=== PATIENT | female | born 1995 | race Caucasian/White ===

== ENCOUNTER 2020-07-25 14:57 | Outpatient (REF) | payer MEDICAID, SELFPAY | END 2020-07-25 14:58 | disposition home or self-care (01) | LOC: HO.MANLNP 14:57 | PROVIDERS: PCP Physician Assistant; Visit Provider Physician Assistant | DX: R30.9 Painful micturition, unspecified (principal) | CPT/HCPCS: 87086 ==

== ENCOUNTER 2022-11-10 10:36 | Outpatient (REF) | payer MEDICAID, SELFPAY ==
[2022-11-10 14:04] LABS: MANUAL DIFF FLAG NO
[2022-11-10 14:26] LABS: Basophils Percent Auto 0.4 % (0-2); Eosinophils Absolute Auto 0.8 X10*3/uL (0.0-0.4); Eosinophils Percent Auto 10.9 % (0-4); Hematocrit 41.4 % (37.0-47.0); Imm Gran Abs Auto 0.01 X10*3/uL (0.00-0.03); Imm Gran Pct Auto 0.1 % (0.0-0.4); Lymphocytes Absolute Auto 2.2 X10*3/uL (1.2-4.9); Lymphocytes Percent Auto 31.2 % (20-40); Mean Corpuscular HGB Conc 33.8 g/dl (31.0-35.0); Mean Corpuscular Hemoglobin 30.1 pg (27.0-33.0); Mean Platelet Volume 10.5 fL (9.4-12.3); Monocytes Absolute Auto 0.4 X10*3/uL (0.1-1.2); Monocytes Percent Auto 5.2 % (2-11); Neutrophils Absolute Auto 3.6 x10*3/uL (2.0-8.3); Neutrophils Percent Auto 52.2 % (45-73); Platelet Count 301 X10*3/uL (160-400); Red Blood Count 4.65 X10*6/uL (4.20-5.50); Red Cell Distribution Width 11.7 % (11.0-16.0); White Blood Count 6.9 X10*3/uL (4.8-10.8)
[2022-11-10 14:47] LABS: Alanine Aminotransferase 14 U/L (0-31); Albumin Level 4.3 g/dL (3.5-5.0); Alkaline Phosphatase 57 U/L (39-117); Anion Gap 14 (12-20); Aspartate Amino Transferase 19 U/L (5-31); Bilirubin Total 0.6 mg/dL (0.0-1.0); Blood Urea Nitrogen 10 mg/dL (9-16); Calcium 9.4 mg/dL (8.4-10.2); Carbon Dioxide 23 mmol/L (22-29); Chloride 105 mmol/L (96-108); Cholesterol 213 mg/dL; Estimated Glomerular Filt Rate > 60; Glucose Random 91 mg/dL (60-115); HDL Cholesterol 49 mg/dL; Iron 161 mcg/dL (30-160); LDL Cholesterol Calculated 134 mg/dl; Percent Iron Saturation 48 % (15-50); Potassium 4.5 mmol/L (3.3-5.1); Sodium 137 mmol/L (135-145); Total Iron Binding Capacity 338 mcg/dL (228-428); Total Protein 6.7 g/dL (6.5-8.0); Triglycerides 150 mg/dL; Unsaturated Iron Binding 177 ug/dL
[2022-11-10 15:12] LABS: Ferritin 34 ng/mL (10-122); Free T4 (Free Thyroxine) 0.92 ng/dL (0.71-1.85); Thyroid Stimulating Hormone 1.63 uIU/mL (0.32-4.0); Vitamin D 25-OH Total 20.6 ng/mL (>30)
== END 2022-11-10 10:37 | disposition home or self-care (01) ==
LOC: HO.MANLDS 10:36
PROVIDERS: Visit Provider Physician Assistant
DX: Z00.00 Encounter for general adult medical examination without abnormal findings (principal); Z77.120 Contact with and (suspected) exposure to mold (toxic)
CPT/HCPCS: 36415; 80053; 80061; 82306; 82728; 83540; 84439; 84443; 85025

== ENCOUNTER 2023-03-30 13:40 | Outpatient (REF) | payer MEDICAID, SELFPAY ==
[2023-03-30 17:53] LABS: Appearance Urine Clear; Color Urine Yellow; Glucose Urine UA Negative (Negative); Leukocyte Esterase Urine Negative (Negative); Nitrite Urine Negative (Negative); PH 7.5 (5.0-9.0); Urine Blood Negative (Negative); Urine Ketones Negative (Negative); Urine Protein Negative (Neg-Trace)
== END 2023-03-30 13:41 | disposition home or self-care (01) ==
LOC: HO.MANLNP 13:40
PROVIDERS: Visit Provider Physician Assistant
DX: R30.9 Painful micturition, unspecified (principal)
CPT/HCPCS: 81003

== ENCOUNTER 2024-09-09 11:39 | Outpatient (REF) | payer OTHER, SELFPAY ==
[2024-09-09 13:19] LABS: Appearance Urine Cloudy; Color Urine Yellow; Glucose Urine UA Negative (Negative); Leukocyte Esterase Urine Small (1+) (Negative); Nitrite Urine Positive (Negative); PH 7.5 (5.0-9.0); UMIC TRIGGER UACC YES; Urine Blood Negative (Negative); Urine Ketones Trace mg/dL (Negative); Urine Protein Negative (Neg-Trace)
[2024-09-09 13:24] LABS: Bacteria Urine 4+ (None Seen); Hyaline Casts Urine 0-2 /LPF (0-2); RBC Urine 0-2 /HPF (0-2); Squamous Epithelial Cell Urine 0-2 /HPF (0-2); UACC Culture Trigger YES
== END 2024-09-09 11:40 | disposition home or self-care (01) ==
LOC: HO.LAB 11:39
PROVIDERS: PCP Internal Medicine; Visit Provider Physician Assistant
DX: N39.0 Urinary tract infection, site not specified (principal)
CPT/HCPCS: 81001; 87086; 87088; 87186

== ENCOUNTER 2024-12-16 14:54 | Outpatient (REF) | payer OTHER, SELFPAY ==
--- OUTSIDE RECORDS SUMMARY | 2024-12-16 16:17 | XMS_ITS | Patient Health Record ---
Author Organization [facility] Address [address] [place] [address] Care Team Providers Care Power Plant Inspector Name Role Phone LEAH FERNANDEZ Primary Care Provider NORBERTO Carmichael Unavailable [phone] Reason For Referral No Information Social History Tobacco Use: Social History Observation Description Date Details (start date - stop date) Former Smoker NA - NA Tobacco Use/Smoking Question Answer Notes Are you a former smoker How long has it been since you last smoked? 1-3 months Alcohol Screen (Audit-C) Question Answer Notes Did you have a drink contain ing alcohol in the past year? Yes How often did you have a dri nk containing alcohol in the past year? 2 to 3 times a week (3 points) How many drinks did you have on a typical day when you were drinking in the past year? 1 or 2 drinks (0 point) Points 3 Interpretation Positive Sexual History Question Answer Notes Had sex in the past 12 months (vaginal, oral, or anal)? Yes with Men only Prevention strategies discussed: Condoms Plan Of Treatment Pending Test Test Name Order Date THIN PREP,HPV IF ASCUS, CT/GC (21-29YR) 11/08/2018 Insurance Providers Payer Name Payer Address Payer Phone Subscriber Number Group Number Insured Name Patient Relationship to Insured Coverage Start Date Coverage End Date [facility] [address] [place] [address] [phone] [id number] NATE MONTOYA Self - patient is the insured Medical (General) History Medical History History ICD Code Migraine without aura, intractable, with out status migrainosus G43.019 Anxiety disorder, unspecified F41.9 Major depressive disorder, single episod e, unspecified F32.9 Surgical History Surgery Date(Month/Year) D&C 11/2017 Hospitalization History Reason Date(Month/Year) UTI 10/12/18
--- OUTSIDE RECORDS SUMMARY | 2024-12-16 16:17 | XMS_ITS | Encounter Summary ---
Author Organization [facility] Address [address] [place] [address] Phone Care Team Providers Care Loader Operator Name Role Phone Unavailable Primary Care Provider Unavailabl e Encounter Details Date Type Department Care Team (Late st Contact Info) Description 10/25/2009 Documentation [facility] Family Medicine [facility] [place] [address] Family Medicine, Physician [facility] [place] [address] Social History Tobacco Use Types Packs/Day Years Used Date Smoking Tobacco: Never Assessed Comments Unknown Sex and Gender Information Value Date Recorded Sex Assigned at Not on file Legal Sex Female 6:28 PM EDT Gender Identity Not on file Sexual Orientation Not on file documented as of this encounter Plan of Treatment Not on file documented as of this encounter Visit Diagnoses Not on filedocumented in this encounter
--- OUTSIDE RECORDS SUMMARY | 2024-12-16 16:17 | XMS_ITS | Clinical Summary ---
Author Organization [facility] Address [address] [place] [address] Care Team Providers Care Production Sanitizer Name Role Phone Unavailable Primary Care Provider Unavailabl e Social History Tobacco Use Types Packs/Day Years Used Date Smoking Tobacco: Never Assessed Sex and Gender Information Value Date Recorded Sex Assigned at Not on file Gender Identity Not on file Sexual Orientation Not on file Plan of Treatment Health Maintenance Due Date Last Done Comments Hepatitis C Virus Screening 1993 HIV Screening 2006 DTaP/Tdap/Td Vaccines (1 - Tdap) 2012 Hepatitis B Vaccines (1 of 3 - 19+ 3-dose series) 2012 Pap Smear (Ages 21-65) 2014 Influenza Vaccine 05/05/2024 COVID-19 Vaccine ( - 2023-2 5 season) 2024 HPV Vaccines Aged Out No longer eligi ble based on patient's age to complete this topic Pneumococcal Vaccine: Pediat izabela (0-5 Years) and At-Risk Patients (6 to 49 Years) Aged Out No longer eligible b ased on patient's age to complete this topic
--- OUTSIDE RECORDS SUMMARY | 2024-12-16 16:17 | XMS_ITS | Continuity of Care Document ---
Author Organization [facility] Address [address] [place] [address] Assessment No assessment recorded. Plan of Treatment Reminders Order Date Submit Date Provider Last Modified By Organization Details Last Modified Time Details Appointments FOLLOW UP 15 2024 11:15A M JAMARI BABCOCK Not available Not available Not available ANNUAL EXAM 2024 09:30A M JAMARI BABCOCK Not available Not available Not available Lab None recorded . Referral None recorded . Procedures None recorded . Surgeries None recorded . Imaging None recorded . Medication Orders None recorded . Patient TargetsNo targets recorded. Patient InstructionsNo instructions recorded. 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 None Reported. Results Created Date Observation Date Name Description Value Unit Range Abnormal Flag Note LastModifiedBy Organization Detail LastModifiedTime 11/22/1911/22/2024 MRI, knee, w/o contr ast No observ ation record ed. [email or web address] Not Available 2024 10:46:00 Result Notes None recorded. Problems Name Problem SNOMED Code Status Onset Date Resolution Date Notes Provider Name and Address Organization Details Recorded Time History of depressi on 490702355 Active 2017 Not Available [facility] 3 12:53:26 Anxiety 75219638 Active 2017 Not Available [facility] 3 12:53:26 Acne 64165902 Active 2017 Not Available [facility] 3 12:53:26 Migraine 89401751 Active 2017 resolved Not Available [facility] 3 12:53:26 Tobacco dependen ce syndrome 71326414 Active 2017 Not Available [facility] 3 12:53:26 Cough 27762728 Active 2021 Not Available [facility] 3 12:53:26 Diarrhea 10128682 Active 2021 Not Available [facility] 3 12:53:26 Panic attack 448715534 Active 2021 Not Available [facility] 3 12:53:26 Migraine with aura 9487189 Active 2022 Not Available [facility] 3 12:53:26 Cellulit is 436814134 Active 2022 Not Available [facility] 3 12:53:26 Acute urinary tract infectio n 879695029 Active 2022 Not Available [facility] 3 12:53:26 Dysuria 03312413 Active 2022 Not Available [facility] 3 12:53:26 Recurren t urinary tract infectio n 862213440 Active 2022 JAMARI BABCOCK [address] [place], [address], [facility] 3 15:05:38 Acute bacteria l sinusiti s 01698923 Active 2023 JAMARI BABCOCK [address] [place], [address], [facility] 4 14:04:52 Allergic rhinitis 23448186 Active 2023 JAMARI BABCOCK [address] [place], [address], [facility] 4 14:06:00 Asthmati c bronchit is 058893134 Active 2023 Rico Coello DO [address] [place], [address], [facility] 4 13:32:02 Painless rectal bleeding 288141465 Active 2023 JAMARI BABCOCK [address] [place], [address], [facility] 4 16:30:05 Gastroes ophageal reflux disease 800846771 Active 2023 JAMARI BABCOCK [address] [place], [address], [facility] 4 16:31:26 Depressi ve disorder 85697180 Active 2023 JAMARI BABCOCK [address] [place], [address], [facility] 4 16:40:07 Attentio n deficit hyperact ivity disorder 884198826 Active 2023 JAMARI BABCOCK [address] [place], [address], [facility] 4 15:55:43 Pain of left knee joint 37690210576 4107 Active 2023 JAMARI BABCOCK [address] [place], [address], [facility] 4 15:59:05 Severe recurren t major depressi on without psychoti c features 30164340 Active 2024 JAMARI BABCOCK [address] [place], [address], [facility] 5 15:07:37 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 Medical Equipment None Reported. Allergies No known drug allergies Medications Name Sig Start Date Stop Date Status Note LastModified by Organization Details LastModified Time venlafaxi ne ER 37.5 mg capsule,e xtended release 24 hr TAKE 1 CAPSULE BY MOUTH EVERY DAY 08/16 completed Not Available Not Available Not Available ciproflox acin 750 mg tablet TAKE 1 TABLET BY MOUTH EVERY 12 HOURS FOR 7 DAYS 04/18 completed Not Available Not Available Not Available trazodone 50 mg tablet TAKE 1 TO 2 TABLETS BY MOUTH AT BEDTIME 11/10 completed Not Available Not Available Not Available azithromy elinor 250 mg tablet TAKE 2 TABLETS BY MOUTH TODAY, THEN TAKE 1 TABLET DAILY FOR 4 DAYS DIRECTED 04/18 completed Not Available Not Available Not Available fluconazo le 150 mg tablet TAKE 1 TABLET BY MOUTH FOR 3 DAYS. 11/10 completed Not Available Not Available Not Available cephalexi n 250 mg capsule TAKE 1 CAPSULE EVERY 6 HOURS BY ORAL ROUTE FOR 30 DAYS. 04/18 completed Not Available Not Available Not Available prazosin 1 mg capsule 11/10 completed Not Available Not Available Not Available metronida zole 0.75 % (37.5 mg/5 gram) vaginal gel 05/27 completed Not Available Not Available Not Available Tubersol 5 tub. unit/0.1 mL intraderm al injection solution Inject 0.1 mL by intrader mal route. 03/09 completed Not Available Not Available Not Available sertralin e 100 mg tablet TAKE 1 TABLET BY MOUTH EVERY DAY IN THE MORNING 04/18 completed Not Available Not Available Not Available metronida zole 500 mg tablet TAKE 1 TABLET BY MOUTH EVERY 8 HOURS FOR 5 DAYS 11/10 completed Not Available Not Available Not Available ciproflox acin 500 mg tablet TAKE 1 TABLET BY MOUTH EVERY 12 HOURS FOR 10 DAYS active Not Available Not Available No t Available sulfameth oxazole 800 mg-trimet hoprim 160 mg tablet TAKE 1 TABLET BY MOUTH EVERY 12 HOURS FOR 5 DAYS 04/18 completed Not Available Not Available Not Available triamcino lone acetonide 0.1 % topical cream APPLY THIN COAT TO AFFECTED AREA TWICE A DAY 04/18 completed Not Available Not Available Not Available lamotrigi ne 25 mg tablet TAKE ONE TAB IN MORNING X14 DAYS THEN IF TOLERATE D TAKE TWO TABS IN MORNING X14 DAYS 11/10 completed Not Available Not Available Not Available propranol ol 10 mg tablet TAKE 1 TABLET BY MOUTH DAILY AT SUPPER,X 30 DAYS,INS TR:FOR HEADACHE S . 04/18 completed Not Available Not Available Not Available amoxicill in 875 mg tablet TAKE 1 TABLET BY MOUTH EVERY 12 HOURS FOR 7 DAYS 04/18 completed Not Available Not Available Not Available lorazepam 0.5 mg tablet TAKE 1 TABLET BY MOUTH EVERY DAY NEEDED FOR 5 DAYS 11/10 completed Not Available Not Available Not Available bupropion HCl 75 mg tablet TAKE 1 TABLET BY MOUTH EVERY MORNING 11/10 completed Not Available Not Available Not Available fluoxetin e 10 mg capsule TAKE 1 CAPSULE BY MOUTH EVERY DAY 2024 active Not Available Not Available Not Avai lable sertralin e 25 mg tablet Take 1 tablet every day by oral route for 30 days. 05/09 completed Not Available Not Available Not Available methylpre dnisolone 4 mg tablets in a dose pack TAKE 6 TABLETS ON DAY 1 DIRECTED ON PACKAGE AND DECREASE BY 1 TAB EACH DAY FOR A TOTAL OF 6 DAYS 04/18 completed Not Available Not Available Not Available albuterol sulfate HFA 90 mcg/actua tion aerosol inhaler INHALE 2 PUFFS INTO THE LUNGS EVERY 4 HOURS FOR 30 DAYS active Not Available Not Available No t Available sertralin e 50 mg tablet TAKE 1 TABLET EVERY DAY 11/10 completed Not Available Not Available Not Available doxycycli ne hyclate 100 mg tablet TAKE 1 TABLET BY MOUTH TWICE A DAY FOR 7 DAYS 04/18 completed Not Available Not Available Not Available lamotrigi ne 100 mg tablet TAKE 1 TABLET BY MOUTH EVERY MORNING AFTER 50 MG DOSING IS COMPLETE 11/10 completed Not Available Not Available Not Available rizatript an 5 mg tablet PLEASE SEE ATTACHED FOR DETAILED DIRECTIO NS 04/18 completed Not Available Not Available Not Available atomoxeti ne 40 mg capsule TAKE 1 CAPSULE BY MOUTH EVERY DAY 2024 active Not Available Not Available Not Avai lable bupropion HCl XL 150 mg 24 hr tablet, extended release TAKE 1 TABLET BY MOUTH EVERY MORNING 11/10 completed making general anxiety worse Not Available Not Available Not Available Boostrix Tdap 2.5 Lf unit-8 mcg-5 Lf/0.5 mL intramusc ular syringe TO BE ADMINIST ERED BY PHARMACI ST FOR IMMUNIZA TION 11/10 completed Not Available Not Available Not Available COVID-19 At-Home Test kit USE DIRECTED 04/18 completed Not Available Not Available Not Available Vitals Date Recorded Body height Body mass index (BMI) Body weight Heart rate Oxygen saturation Oxygen saturation in Arterial blood by Pulse oximetry Systolic blood pressure Diastolic blood pressure Provider Name and Address Organization Details Last Updated DateTime 5 161.29 cm 33.7 kg/m2 43068.3 3 g 83 /min 97 % 97 % 110 mm[Hg] 68 mm[Hg] Nereida Argueta [facility] 5 14:43:05 Social History Question Answer Notes LastModified by Organizat ion Details LastModified Time Tobacco Smoking Status Former Smoker Nereida orlando [facility] 12/12/2024 14:41:42 What Was The Date Of Your Most Recent Tobacco Screening? 12/12/2024 [email or web address] Information not available 12/12/2024 How Much Tobacco Do You Smoke? No [email or web address] Information not available 12/12/2024 Do You Or Have You Ever Used Any Other Forms Of Tobacco Or Nicotine? No [email or web address] Information not available 03/30/2023 Sex: Unknown Functional Status None recorded. Mental Status None recorded. Family History Nothing Reported. Medical History No medical history recorded. Gynecological HistoryNo gynecological history recorded. Obstetrics History GPAL:G 0 P 0 0 0 0 Immunizations Vaccine Type Date Status Note Provider Nam e and Address Organization Details Recorded Time Influenza, split virus, quadrivalent, preservative 9 completed Not Available [facility] 10/22/2019 02:46:30 influenza, unspecified formulation 2 completed Clare orlando [facility] 11/10/2022 08:15:47 Tdap 0 completed Brittani Nieves [facility] 03/30/2020 08:15:40 Past Encounters Encounter ID Performer Location Encounter Start Date Encounter Closed Date Diagnosis/Indication Diagnosis SNOMED-CT Code Diagnosis ICD10 Code Diagnosis Note [id number] JAMARI BABCOCK [facility] [address] [address] 12/12/2024 14:32:46 12/12/2024 15:42:27 Severe recurrent major depression without psychotic features 51004199 F33.2 will set up with [facility] Health Concerns Section Related Observation LastModified by Organization Detai ls LastModified Time None Recorded Concern Status LastModified by Organization Details LastModified Time None Recorded Payers Encounter Date Sequence Insurance Name Policy Number Policy Islas Covered Member ID Islas Member ID Guarantor Name 12/12/2024 1 [employer] [id number] Mandie Hassan [id number] Mandie Hassan Notes Date Note Type Note Provider Name a nd Address Organization Details Recorded Time 12/12/2024 text/html f/u depression depression d/o: the patient is having a lot of issues with previous anti depressant, noted that she got more irritability will hold on alt medication until we get her set up with FMLA for severe MDD and SI having severe emotional distress due to her job and her fam she works for [employer], contact for [facility], medical leave: Desire Boyce 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
--- OUTSIDE RECORDS SUMMARY | 2024-12-16 16:17 | XMS_ITS | Encounter Summary ---
Author Organization [facility] Address [address] [place] [address] Phone Care Team Providers Care Staff Respiratory Therapist Name Role Phone Unavailable Primary Care Provider Unavailabl e Encounter Details Date Type Department Care Team ([facility] st Contact Info) Description 02/21/2018 Conversion [facility]counter [facility] [address] [address] Social History Tobacco Use Types Packs/Day Years [...]
--- OUTSIDE RECORDS SUMMARY | 2024-12-16 16:17 | XMS_ITS | Data Portability ---
Author Organization [facility] Home Service Address [address] [place] [address] Assessment Encounter Date Assessment Date Assessment LastModified by Organization Details LastModified Time 02/23/2024 02/23/2024 Patient agreed and verbally consents to this audio and video Telehealth appt via a secure platform [email or web address] Not available 02/23/2024 14:09:09 Plan of Treatment Reminders Order Date Submit Date Provider Last Modified By Organization Details Last Modified Time Details Appointments FOLLOW UP 15 2024 11:15A M JAMARI BABCOCK Not available Not available Not available ANNUAL EXAM 2024 09:30A M JAMARI BABCOCK Not available Not available Not available Lab CMP, serum or plasma 2023 DARIN [facility] (Centralized Electronic Ordering - All Locations), Patient Can Go To The Location Of Their Choice, [id number] 08/19/2024 10:34:11 CBC w/ auto diff 2023 024 ATHENAFAX [facility] (Centralized Electronic Ordering - All Locations), Patient Can Go To The Location Of Their Choice, [id number] 08/16/2024 16:09:07 vitamin D, 25-hydrox y, total, serum 2023 024 ATHENAFAX [facility] (Centralized Electronic Ordering - All Locations), Patient Can Go To The Location Of Their Choice, [id number] 08/16/2024 16:09:08 lipid panel, blood 2023 024 ATHENAFAX [facility] (Centralized Electronic Ordering - All Locations), Patient Can Go To The Location Of Their Choice, [id number] 08/16/2024 16:09:07 TSH + free T4, serum 2023 ATHMotomotivesTyba [facility] (Centralized Electronic Ordering - All Locations), Patient Can Go To The Location Of Their Choice, [id number] 08/16/2024 16:09:08 CBC w/ auto diff 2023 [facility], [address] [place] [address], [address], 04/18/2024 16:40:52 CMP, serum or plasma 2023 024 [facility], [address] [place] [address], [address], 04/18/2024 16:40:52 iron + TIBC + ferritin, serum 2023 024 [facility], [address] [place] [address], [address], 04/18/2024 16:40:52 amylase + lipase, serum 2023 024 [facility], [address] [place] [address], [address], 04/18/2024 16:40:52 gamma-glu tamyl transfera se (ggt), serum 2023 [facility], [address] [place] [address], [address], 04/18/2024 16:40:52 Referral gastroent erologist referral 2023 024 benjamin Altman MD, [address] [facility] [address], [place], [address], 04/19/2024 15:52:06 electrical project engineer referral 2023 024 benjamin Mcgill MD, [address], [place], [address], 02/24/2024 09:13:49 Procedures None recorded. Surgeries None recorded. Imaging XR, knee, 3 view 2023 024 [facility], [address] [place], [address], 08/18/2024 17:24:54 Medication Orders fluoxetin e 10 mg capsule 2023 024 [id number], [address] [place], [address], 09/09/2024 15:53:03 atomoxeti ne 40 mg capsule 2023 024 [id number], [address] [place], [address], 09/09/2024 15:52:47 venlafaxi ne ER 37.5 mg capsule,e xtended release 24 hr 2023 024 [email or web address] [facility], [address] [place], [address], 08/16/2024 15:54:00 Zithromax Z-Hesham 250 mg tablet 2023 024 [facility], [address] [place], [address], 04/18/2024 16:19:55 Medrol (Hesham) 4 mg tablets in a dose pack 2023 024 [facility], [address] [place], [address], 04/18/2024 16:20:16 Patient TargetsNo targets recorded. Patient InstructionsNo instructions recorded. 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 [email or web address] Not Available 2023 13:18:03 11/22/19 25 11/22/2024 MRI, knee, w/o contr ast No observ ation record ed. [email or web address] Not Available 2024 10:46:00 Result Notes None recorded. Problems Name Problem SNOMED Code Status Onset Date Resolution Date Notes Provider Name and Address Organization Details Recorded Time History of depressi on 504431881 Active 2017 Not Available [facility] 3 12:53:26 Anxiety 08380329 Active 2017 Not Available [facility] 3 12:53:26 Acne 67508745 Active 2017 Not Available [facility] 3 12:53:26 Migraine 59987694 Active 2017 resolved Not Available [facility] 3 12:53:26 Tobacco dependen ce syndrome 82217404 Active 2017 Not Available [facility] 3 12:53:26 Cough 60158593 Active 2021 Not Available [facility] 3 12:53:26 Diarrhea 40512591 Active 2021 Not Available [facility] 3 12:53:26 Panic attack 135330808 Active 2021 Not Available [facility] 3 12:53:26 Migraine with aura 0823046 Active 2022 Not Available [facility] 3 12:53:26 Cellulit is 312982100 Active 2022 Not Available [facility] 3 12:53:26 Acute urinary tract infectio n 577142762 Active 2022 Not Available [facility] 3 12:53:26 Dysuria 47936211 Active 2022 Not Available [facility] 3 12:53:26 Recurren t urinary tract infectio n 262102048 Active 2022 JAMARI BABCOCK [address] [place], [address], [facility] 3 15:05:38 Acute bacteria l sinusiti s 96489761 Active 2023 JAMARI BABCOCK [address] [place], [address], [facility] 4 14:04:52 Allergic rhinitis 97710988 Active 2023 JAMARI BABCOCK [address] [place], [address], [facility] 4 14:06:00 Asthmati c bronchit is 277567622 Active 2023 Rico Coello DO [address] [place], [address], [facility] 4 13:32:02 Painless rectal bleeding 955290310 Active 2023 JAMARI BABCOCK [address] [place], [address], [facility] 4 16:30:05 Gastroes ophageal reflux disease 716064749 Active 2023 JAMARI BABCOCK [address] [place], [address], [facility] 4 16:31:26 Depressi ve disorder 06331966 Active 2023 JAMARI BABCOCK [address] [place], [address], [facility] 4 16:40:07 Attentio n deficit hyperact ivity disorder 656032352 Active 2023 JAMARI BABCOCK [address] [place], [address], [facility] 4 15:55:43 Pain of left knee joint 88686272148 4107 Active 2023 JAMARI BABCOCK [address] [place], [address], [facility] 4 15:59:05 Severe recurren t major depressi on without psychoti c features 56403473 Active 2024 JAMARI BABCOCK [address] [place], [address], [facility] 5 15:07:37 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 Procedures Surgical History None recorded. Imaging Results Imaging Date Name Status LastModified by Organiz ation Details LastModified Time 08/18/2024 XR, knee, 3 view completed [email or web address] Information not available 08/19/2024 13:18:03 11/22/2024 MRI, knee, w/o contrast completed [email or web address] Information not available 11/23/2024 10:46:00 Procedure Notes None recorded. Medical Equipment None Reported. [...] and Address Organization Details Last Updated DateTime 4 161.29 cm 33 kg/m2 85562.9 6 g 66 /min 99 % 99 % 130 mm[Hg] 80 mm[Hg] [facility] 4 16:22:10 Date Recorded Body height Body mass index (BMI) Body weight Heart rate Oxygen saturation Oxygen saturation in Arterial blood by Pulse oximetry Systolic blood pressure Diastolic blood pressure Provider Name and Address Organization Details Last Updated DateTime 4 161.29 cm 33.7 kg/m2 79501.7 6 g 84 /min 97 % 97 % 116 mm[Hg] 74 mm[Hg] Chelsea Rodríguez [facility] 4 15:32:07 Date Recorded Body height Body mass index (BMI) Body weight Heart rate Oxygen saturation Oxygen saturation in Arterial blood by Pulse oximetry Systolic blood pressure Diastolic blood pressure Provider Name and Address Organization Details Last Updated DateTime 5 161.29 cm 33.7 kg/m2 34874.3 3 g 83 /min 97 % 97 % 110 mm[Hg] 68 mm[Hg] Nereida Argueta [facility] 5 14:43:05 Social History Question Answer Notes LastModified by Organizat ion Details LastModified Time Tobacco Smoking Status Former Smoker Nereida orlando [facility] 12/12/2024 14:41:42 What Was The Date Of Your Most Recent Tobacco Screening? 12/12/2024 [email or web address] Information not available 12/12/2024 How Much Tobacco Do You Smoke? No Information not available 12/12/2024 Do You Or Have You Ever Used Any Other Forms Of Tobacco Or Nicotine? No [email or web address] Information not available 03/30/2023 Sex: Unknown Functional Status None recorded. Mental Status None recorded. Family History Nothing Reported. Medical History No medical history recorded. Gynecological HistoryNo gynecological history recorded. Obstetrics History GPAL:G 0 P 0 0 0 0 Immunizations Vaccine Type Date Status Note Provider Nam e and Address Organization Details Recorded Time Influenza, split virus, quadrivalent, preservative 9 completed Not Available [facility] 10/22/2019 02:46:30 influenza, unspecified formulation 2 completed Clare orlando [facility] 11/10/2022 08:15:47 Tdap 0 completed Brittani orlando [facility] 03/30/2020 08:15:40 Past Encounters Encounter ID Performer Location Encounter Start Date Encounter Closed Date Diagnosis/Indication Diagnosis SNOMED-CT Code Diagnosis ICD10 Code Diagnosis Note [id number] January CECILIA Bonner [facility] [address] [facility],[place] [address] 05/27/2019 10:04:24 05/27/2019 10:52:43 Hemoptysis 07912201 R04.2 cough, tanya ? tb, pna, vs pe go to er if worsens Dizziness 302027604 R42 Migraine 27686021 G43.90 9 Fatigue 63435469 R53.83 Acute pharyngitis 724630 003 J02.9 Increased frequency of urination 375490529 R35.0 Diarrhea 00598512 R19.7 not as bad anymore was supposed to have celiac panel done but never did [id number] Rico Coello [facility] [address] [facility] [address] [place], [employer] [place] [address] 07/25/2019 09:50:32 07/26/2019 13:36:25 Tuberculosis screening 683940002 Z11.[id number] [facility] [address] [facility] [address], [place] [address] 07/27/2019 09:54:08 07/27/2019 14:22:43 Tuberculosis screening 037507315 Z11.1 Administra tion of influenza vaccine 79040825 Z23 [id number] [facility] [address] [facility] [address] [place], [place] [address] 09/09/2019 10:17:48 09/09/2019 11:04:58 Adult health examination 044937250 Z00.00 Active or passive immunization 328750936 Z23 Fatigue 93680598 R53.83 Vitamin D deficiency 347 23184 E55.9 Body mass index 25-29 - overweight 311204224 Z68.28 [id number] Rico Coello [facility] [address] [facility] [address] [place], [employer] [facility] [place] [address] 09/12/2019 09:59:27 09/12/2019 10:06:57 Tuberculosis screening 709620990 Z11.7 [id number] Rico Coello [facility] [address] [facility] [address] [place], ite D [facility] [place] [address] 09/14/2019 10:05:30 09/14/2019 10:41:21 Tuberculosis screening 395401609 Z11.7 [id number] Rico Coello DO [facility] Medicine [address] [facility] [address],[place] [address] 02/20/2020 15:45:28 02/21/2020 08:17:47 Headache 06682417 R51 Sinus headache 7230977 R 51 Diarrhea 18791539 R19.7 [id number] JAMARI BABCOCK [facility] [address] [facility] [address] [place] [address] [place] [facility] [address] 03/09/2020 08:12:28 03/09/2020 11:41:04 Anxiety 95295411 F41.9 will start on medication and f/u in one month to see how she is doing on the dose on this medication she is advised she can start with half a pill for the first week cut the initial effects as she is sensitive to medication s [id number] JAMARI BABCOCK [facility] [address] [facility],[place] [address] 03/30/2020 08:13:01 03/30/2020 14:17:58 Vitamin B12 deficiency (non anemic) 64158398 E53.8 will recheck level Vitamin D deficiency 347 70996 E55.9 will recheck level Anxiety 83714948 F41.9 doing well on medication will continue and f/u to see if she would like to increase dosage [id number] JAMARI BABCOCK [facility] [address] [facility], [place] [address] 07/18/2020 14:23:31 07/18/2020 15:17:44 Dysuria 96822217 R30.9 will start empiric treatment for possible UTI given symptoms as she is waiting to be tested for COVID Exposure t o SARS-CoV-2 316211275 Z20.828 exposure to positive COVID case indirectly through boss will test for COVID [id number] JAMARI BABCOCK [facility] [address] [facility] [address] [place] [address] 10/09/2020 08:32:10 10/09/2020 12:40:29 COVID-19 011697878 U07.1 patient has completed the two week quarantine and still has symptoms discussed with patient that these may take a while longer to resolve due to the nature of the virus will trial an inhaler to help with breathing and wheezing the patient reports Cough 99816659 R05 will contact me if any worsening symptoms will trial inhaler to see if cough and wheezing improves [id number] JAMARI BABCOCK [facility] [address] [facility], it[address] [place] [address] 07/29/2021 09:06:05 07/29/2021 09:42:34 Active or passive immunization 488257049 Z23 Adult heal th examination 668192463 Z00.00 BP is excellent today Gastroesop hageal reflux disease 272678703 K21.9 will submit referral Migraine with aura 38551 06 G43.109 will submit referral [id number] JAMARI BABCOCK [facility] [address] [facility], [place] [address] 11/19/2021 10:19:00 11/19/2021 14:38:58 Bacterial vaginosis 935386047 N76.0 will start dual therapy for treatment and fu with urine sampleBV usually diagnosed with a smear, if needed will 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 as well [id number] JAMARI BABCOCK [facility] [address] [facility], ite [place] [address] 11/10/2022 10:00:03 11/10/2022 10:51:44 Anxiety 51982052 F41.1 will manage on this Adult heal th examination 467410143 Z00.00 BP is excellent today Exposure to mold 5607490 328 7768606 Z77.120 will set up with mold panel to make sure with new apartment [id number] JAMARI BABCOCK [facility] [address] [facility] [address] [place], [place] [address] 12/19/2022 09:33:14 12/22/2022 10:32:05 Migraine with aura 7150386 G43.109 will submit referral Cellulitis 790206548 L03 .315 will start on doxycyline for the next 7 days [place] [id number] JAMARI BABCOCK [facility] [address] [facility] [address] [place] [address] 03/30/2023 11:29:08 03/30/2023 14:14:52 Acute urinary tract infection 033854948 N10 start on cipro [id number] Rico Coello [facility] [address] [facility],[place] [address] 05/27/2023 14:05:13 05/27/2023 14:58:32 Dysuria 91798902 R30.0 [id number] Rico Coello [facility] [address] [facility] [address] [place] [address] 09/02/2023 13:48:49 09/04/2023 08:46:37 Dysuria 77950824 R30.0 [id number] JAMARI BABCOCK [facility] [address] [place] [address],[place] [address] 02/23/2024 10:37:42 02/24/2024 20:23:11 [id number] JAMARI BABCOCK [facility] [address] [facility],[place] [address] 02/23/2024 12:03:04 02/24/2024 08:44:40 Acute bacterial sinusitis 01327295 J01.01 will start on z hesham, medrol Allergic rhinitis 387939 04 J30.89 will set up with an evaluation [id number] JAMARI BABCOCK [facility] [address] [facility],[place] [address] 04/18/2024 16:11:34 04/19/2024 15:43:14 Depression screening 114551315 Z13.31 negative Painless r ectal bleeding 238563235 K62.5 will set up with lab work to r/o other causes and or continous bleed Gastroesop hageal reflux disease 135780843 K21.9 will submit referral Depressive disorder 7819 7108 F33.8 will switch over to the venlafaxin e [id number] JAMARI BABCOCK [facility] [address] [facility] [address] [place] [address] 08/16/2024 15:20:13 08/16/2024 16:21:38 Active or passive immunization 070572143 Z23 advised patient Adult heal th examination 260663923 Z00.00 BP is excellent today Depressive disorder 3548 9007 F33.8 switch to fluoxetine Attention deficit hyperactivity disorder 747442138 F90.2 will set up with atomoxetin e as wellif effective or if needs some benefit with stronger medication Pain of le ft knee joint 1359317229 81489 M25.562 will set up with left knee XR after previous injury [id number] JAMARI BABCOCK [facility] [address] [facility] [address] [place] [address] 12/12/2024 14:32:46 12/12/2024 15:42:27 Severe recurrent major depression without psychotic features 10738124 F33.2 will set up with FMLA Health Concerns Section Related Observation LastModified by Organization Detai ls LastModified Time None Recorded Concern Status LastModified by Organization Details LastModified Time None Recorded Advance Directives Directive None Recorded Payers Encounter Date Sequence Insurance Name Policy Number Policy Islas Covered Member ID Islas Member ID Guarantor Name 02/23/2024 1 [employer] [id number] Mandie M Hassan [id number] Mandie Hassan 02/23/2024 1 [employer] [id number] Mandie M Hassan [id number] Mandie Hassan 04/18/2024 1 [employer] [id number] Mandie M Hassan [id number] Mandie Hassan 08/16/2024 1 [employer] [id number] Mandie M Hassan [id number] Mandie Hassan 12/12/2024 1 [employer] [id number] Mandie M Hassan [id number] Mandie Hassan Notes Date Note Type Note Provider Name a id Address Organization Details Recorded Time 4 text/html c/o sick symptoms/cold The patient is participating in this appointment via telemedicine communication with a phone call/video calling service (Doxy)The patient consents to use of these platforms in place of an in-person appointment due to either sick symptoms the patient is presenting with or current office closure due to COVID exposure in order to keep our office staff and patients safe The patient presents to the office today with concerns of sick symptoms including cough, sinus pressure, fatigue, feeling generally unwell, fever, diarrhea does have allergies, but has been consistent with her anti-histamine but this has progressed into severe symptoms dark mucus, rhinorrhea, post-nasal drip, dry cough, chest tightness The symptoms started originally about a week and a half agoThe patient reports exposure to n/aThe patient symptoms mainly involves the sinus symptoms will set up with ENT for re eval, had allergy testing there and discussed allergy shotswill fu with them Pertinent comorbidities include n/a The patient symptoms are alleviated by rest, mucinexThe patient symptoms are exacerbated by activity The patient has tested for COVID-19 and the results was negative JAMARI BABCOCK [address] [place], [address], [facility] 02/23/2024 14:11:19 4 text/html c/o rectal bleeding the patient reports that she has had two episodes of blood in her stoolthe patient reports that she has noticed itching around the rectal areathe patient denies pain in the abdomenthe patient denies any changes in bowel habits, was constipated last weekthe patient denies any urinary symptomsthe patient reports to eating more fibrous foods like fruits and vegetablethat is most likely related to constipation then diarrhea causing inflammation and bleeding discussed her medication, the sertraline is causing drowsiness and weight gainwill switch out to venlafaxine JAMARI BABCOCK [address] [place], [address], [facility] 04/18/2024 16:46:14 4 text/html Annual WellnessReported bypatient.Diet and Nutrition:healthy diet; discussed vitamin and supplement use; discussed portion control; discussed maintaining calcium balance; discussed diet improvement Fracture Risk:no history of fractures; no recent explained fracture; no sudden unexplained fractures; no previous musculoskeletal injuries Physical Activity:exercises on a regular basis; recent increase in physical activity; good physical condition Additional Lifestyle Factors:no tobacco use; no alcohol intake; stopped drinking alcohol Depression Risk:never feels sad, empty, or tearful; no loss of interest in activities; no significant changes in weight; no sleep disturbances or insomnia; no agitation; no loss of energy; no feelings of worthlessness or guilt; no thoughts of suicide; no history of depression; no history of mood disorders Hearing:no loss of hearing Vision:no vision problems changing medication will set up fluoxetine and atomoxetine needs XR of knee L given previous injury(about a year ago) needs yearly lab work as well JAMARI BABCOCK [address] [place], [address], [facility] 08/16/2024 16:15:58 5 text/html f/u depression depression d/o: the patient is having a lot of issues with previous anti depressant, noted that she got more irritability will hold on alt medication until we get her set up with FMLA for severe MDD and SI having severe emotional distress due to her job and her fam she works for [employer], contact for [facility], medical leave: 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 Ganesh Jonas film maker [place] Customer Support Call: [phone] Email: [email or web address] JAMARI BABCOCK [address] [place], [address], [facility] 12/12/2024 15:32:39 OBGyn Episode No OBEpisode recorded.
--- OUTSIDE RECORDS SUMMARY | 2024-12-16 16:17 | XMS_ITS | Encounter Summary ---
Author Organization Formerly [facility] Address [address] [place] [address] Care Team Providers Care Assistant Restaurant General Manager Name Role Phone Unavailable Primary Care Provider Unavailabl e Encounter Details Date Type Department Care Team (Latest Contact Info) Description 01/03/2021 Lab Requisition [facility] COVID [address] Through [address] [place] [address] [address] [place] [address] Artemio Allen MD [address] [place], [place] [id number] Encounter for laboratory testing for COVID-19 virus Social History Tobacco Use Types Packs/Day Years Used Date Smoking Tobacco: Never Assessed Sex and Gender Information Value Date Recorded Sex Assigned at Not on file Gender Identity Not on file Sexual Orientation Not on file documented as of this encounter Plan of Treatment Not on file documented as of this encounter Procedures Procedure Name Priority Date/Time Associated Diagnosis Comments COVID-19 (SARS-COV-2) JACOB Routine 01/03/2021 1:54 PM EDT Encounter for laboratory testing for COVID-19 virus [ICD-10-CM] documented in this encounter Results * COVID-19 (SARS-CoV-2), JACOB (In-House) (01/03/2021 1:54 PM EDT) SARS CoV 2 Not Detected Not Detected 01/03/2021 8:06 PM EDT [facility] Comment: Negative results do not preclude SARS-CoV-2 (COVID-19)infection and should not be used as the sole basis for treatment or other patient management decisions. The SARS-CoV-2 (Covid-19) Nucleic Acid Amplification Assay is limited to laboratories certified under the Clinical Laboratory Improvement Amendments of 1988 (CLIA), 42 U.S.C. 263a, to perform high complexity tests. Nucleic acid amplication tests include RT-PCR and TMA. This assay has not been FDA cleared or approved, however, this assay has been authorized by the Food and Drug Administration (FDA) under an Emergency Use Authorization (EUA). ??Validation was completed and performance characteristics established by [facility] as per the FDA and CLIA requirement for this EUA. The Aptima SARS-CoV-2 assay Letter of Authorization, along with the authorized Fact Sheet for Healthcare Providers, the authorized Fact Sheet for Patients, and authorized labeling are available on the FDA website: https://www.fda.gov/medical-devices/twihbrlqy-hdivqdxqot-xclbsfu-devices/emergen -us t-sztyyjfyrmnrge-sqngovo-devices. Performed at [facility], [place], [place] License [id number] ??CLIA [id number] Source Nasopharyngeal 01/03/2021 8:06 PM EDT [facility] Comment:Performed at [facility], [place], [place] license No. [id number] CLIA No. [id number] Microbiology Nasopharyngeal swab / Unknown 01/03/2021 1:54 PM EDT 01/03/2021 1:54 PM EDT Artemio Allen MD MICROBIOLOGY - GENER AL ORDERABLES [facility] [address] [place] [address] documented in this encounter Visit Diagnoses Diagnosis Encounter for laboratory testing for COVID-19 virus documented in this encounter
--- OUTSIDE RECORDS SUMMARY | 2024-12-16 16:17 | XMS_ITS | Clinical Summary ---
Author Organization [facility] Address [address] [place] [id number] Phone Care Team Providers Care Press Puller Name Role Phone Unavailable Primary Care Provider Unavailabl e Immunizations Immunization Administration Dates Next Due DTaP 12/04/1997, 5,1993,08/05,1993 H1N1 10/25/2009 HPV, Quadrivalent 06/09/2008,05/24/2007,04/19/20 07 Hep B, ped/adol 02/06/1994,1993,1993 Hib (PRP-T) 07/29/1994, 4,1993,06/20 IPV 06/20/2003, 8,10/31/1994,08/20 Influenza, injectable, quadrivalent 10/25/2009 MMR 12/04/1997,07/29/1994 Meningococcal Conj (Menactra) MCV4P 04/19/2007 Td (adult) (Tenivac), 5 Lf t etanus toxoid, PF, adsorbed 01/30/2005 Tdap 10/25/2009 Unknown Vaccine 02/21/2011 Family History Relation Name Status Comments Father hypertension ag e: 38 Father's Brother migraines Maternal Grandfather Alive Maternal Grandmother Alive Mother drug abuse age: 37 Paternal Grandfather [place] age: 49 Paternal Grandmother migrain e age: 58 Social History Tobacco Use Types Packs/Day Years Used Date Smoking Tobacco: Never Assessed Comments Unknown Sex and Gender Information Value Date Recorded Sex Assigned at Not on file Legal Sex Female 6:28 PM EDT Gender Identity Not on file Sexual Orientation Not on file Last Filed Vital Signs Vital Sign Reading Time Taken Comments Blood Pressure 116/68 12/05/2011 12:00 AM EST Pulse - - Temperature 36.3 ??C (97.4 ??F) 12/05/2011 1 2:00 AM EST Respiratory Rate - - Oxygen Saturation - - Inhaled Oxygen Concentration - - Weight 65.7 kg (144 lb 12.8 oz) 012 12:00 AM EST Height 160 cm (5' 3 ) 12/05/2011 12:00 AM EST Body Mass Index 25.65 12/05/2011 12:00 AM EST Plan of Treatment Health Maintenance Due Date Last Done Comments Varicella Vaccines (1 of 2 - 13+ 2-dose series) 2006 DTaP,Tdap,and Td Vaccines (7 - Td or Tdap) 10/25/2019 10/25/2009, 01/30/2005, 12/04/1997, Additional history exists Influenza Vaccines (#1) 2024 10/25/2009 COVID-19 Vaccine () 06/05/2024 Hepatitis B Vaccines Completed 02/06/1994, 1993, 1993 HIB Vaccines Completed 07/29/1994, 10/06, 1993, Additional history exists MMR Vaccines Completed 12/04/1997, 07/29/1994 IPV Vaccines Completed 06/20/2003, 11/1997, 10/31/1994, Additional history exists Meningococcal Vaccine Aged Out 04/19/2007 No mary perla eligible based on patient's age to complete this topic HPV Vaccines Completed 06/09/2008, 05/06, 04/19/2007 Hepatitis A Vaccines Aged Out No long er eligible based on patient's age to complete this topic Men B Vaccine Aged Out No longer elig ible based on patient's age to complete this topic Pneumococcal Vaccine Aged Out No long er eligible based on patient's age to complete this topic
--- OUTSIDE RECORDS SUMMARY | 2024-12-16 16:17 | XMS_ITS | Clinical Summary ---
Author Organization [facility] Address [address] [place] [address] Care Team Providers Care Hotel Assistant Manager Name Role Phone Unavailable Primary Care Provider Unavailabl e Immunizations Name Administration Dates Next Due Covid-19 (Pfizer) Dilution Required 01/15/2021,0 12/19/2020 Social History Tobacco Use Types Packs/Day Years Used Date Smoking Tobacco: Never Assessed Sex and Gender Information Value Date Recorded Sex Assigned at Not on file Gender Identity Not on file Sexual Orientation Not on file Plan of Treatment Health Maintenance Due Date Last Done Comments Hepatitis B Vaccines (1 of 3 - 3-dose series) 1993 Hepatitis C Screening 1993 Depression Screening 2005 Preventative Health Evaluation 2011 Cervical Cancer Screening (Pap Smear) 2014 COVID-19 Vaccine ( season) 2024 01/15/2021, 12/19/2020 Influenza Vaccine (#1) 2024 07/27/2019, 2009 DTap / Tdap / Td (8 - Td or Tdap) 10/27/2029 10/27/2019, 10/25/2009, 01/30/2005, Additional history exists Pneumococcal Vaccine Aged Out No long er eligible based on patient's age to complete this topic RSV Ped < 20 months Aged Out No longe r eligible based on patient's age to complete this topic
[2024-12-16 16:40] LABS: Basophils Absolute Auto 0.1 X10*3/uL (0.0-0.2); Basophils Percent Auto 0.6 % (0-2); Hemoglobin 13.5 g/dl (12.0-16.0); Imm Gran Abs Auto 0.03 X10*3/uL (0.00-0.03); Imm Gran Pct Auto 0.3 % (0.0-0.4); MANUAL DIFF FLAG SCAN; Mean Platelet Volume 11.1 fL (9.4-12.3); PLT CLUMP 1; Red Cell Distribution Width 12.2 % (11.0-16.0); SCAN SMEAR FLAG 1
[2024-12-16 16:42] LABS: Eosinophils Absolute Auto 0.7 X10*3/uL (0.0-0.4); Eosinophils Percent Auto 6.9 % (0-4); Hematocrit 38.4 % (37.0-47.0); Lymphocytes Absolute Auto 2.7 X10*3/uL (1.2-4.9); Lymphocytes Percent Auto 27.2 % (20-40); Mean Corpuscular HGB Conc 35.2 g/dl (31.0-35.0); Mean Corpuscular Hemoglobin 29.4 pg (27.0-33.0); Mean Corpuscular Volume 83.7 fL (80.0-98.0); Monocytes Absolute Auto 0.5 X10*3/uL (0.1-1.2); Monocytes Percent Auto 4.8 % (2-11); Neutrophils Absolute Auto 5.9 x10*3/uL (2.0-8.3); Neutrophils Percent Auto 60.2 % (45-73); Red Blood Count 4.59 X10*6/uL (4.20-5.50)
[2024-12-16 16:59] LABS: White Blood Count 9.8 X10*3/uL (4.8-10.8)
[2024-12-16 17:00] LABS: SLIDE REVIEW VERIFIED
[2024-12-16 17:10] LABS: Appearance Urine Clear; Color Urine Yellow; Glucose Urine UA Negative (Negative); Leukocyte Esterase Urine Negative (Negative); Nitrite Urine Negative (Negative); Specific Gravity - Urine 1.025 (1.005-1.025); Urine Blood Negative (Negative); Urine Ketones Negative (Negative); Urine Protein Negative (Neg-Trace)
[2024-12-16 17:39] LABS: Alanine Aminotransferase 31 U/L (0-31); Albumin Level 4.3 g/dL (3.5-5.0); Alkaline Phosphatase 65 U/L (39-117); Anion Gap 14 (12-20); Aspartate Amino Transferase 23 U/L (5-31); Bilirubin Total 0.2 mg/dL (0.0-1.0); Blood Urea Nitrogen 15 mg/dL (9-16); Calcium 9.5 mg/dL (8.4-10.2); Carbon Dioxide 20 mmol/L (22-29); Chloride 108 mmol/L (96-108); Estimated Glomerular Filt Rate > 60; Glucose Random 88 mg/dL (60-115); Potassium 3.9 mmol/L (3.3-5.1); Sodium 138 mmol/L (135-145); Total Protein 7.7 g/dL (6.5-8.0)
== END 2024-12-16 14:55 | disposition home or self-care (01) ==
LOC: HO.MANLDS 14:54
PROVIDERS: PCP Internal Medicine; Visit Provider Physician Assistant
DX: R30.9 Painful micturition, unspecified (principal); B95.2 Enterococcus as the cause of diseases classified elsewhere
CPT/HCPCS: 36415; 80053; 81003; 85025; 87040

== ENCOUNTER 2024-12-28 12:11 | Outpatient (REF) | payer OTHER, SELFPAY ==
[2024-12-28 18:25] LABS: MANUAL DIFF FLAG NO
[2024-12-28 18:37] LABS: Basophils Percent Auto 0.4 % (0-2); Eosinophils Absolute Auto 0.5 X10*3/uL (0.0-0.4); Eosinophils Percent Auto 6.9 % (0-4); Hematocrit 41.5 % (37.0-47.0); Hemoglobin 14.2 g/dl (12.0-16.0); Imm Gran Abs Auto 0.01 X10*3/uL (0.00-0.03); Imm Gran Pct Auto 0.1 % (0.0-0.4); Lymphocytes Absolute Auto 2.4 X10*3/uL (1.2-4.9); Mean Corpuscular HGB Conc 34.2 g/dl (31.0-35.0); Mean Corpuscular Hemoglobin 29.9 pg (27.0-33.0); Mean Corpuscular Volume 87.4 fL (80.0-98.0); Mean Platelet Volume 10.1 fL (9.4-12.3); Monocytes Absolute Auto 0.5 X10*3/uL (0.1-1.2); Monocytes Percent Auto 6.2 % (2-11); Neutrophils Absolute Auto 4.1 x10*3/uL (2.0-8.3); Neutrophils Percent Auto 54.4 % (45-73); Platelet Count 339 X10*3/uL (160-400); Red Blood Count 4.75 X10*6/uL (4.20-5.50); Red Cell Distribution Width 12.3 % (11.0-16.0); White Blood Count 7.6 X10*3/uL (4.8-10.8)
== END 2024-12-28 12:12 | disposition home or self-care (01) ==
LOC: HO.MANLDS 12:11
PROVIDERS: Visit Provider Physician Assistant
DX: N39.0 Urinary tract infection, site not specified (principal)
CPT/HCPCS: 36415; 85025

== ENCOUNTER 2025-01-11 13:16 | Outpatient (REF) | payer OTHER, SELFPAY ==
[2025-01-11 13:35] LABS: Appearance Urine Clear; Color Urine Yellow; Glucose Urine UA Negative (Negative); Leukocyte Esterase Urine Negative (Negative); Nitrite Urine Negative (Negative); Urine Blood Negative (Negative); Urine Ketones Negative (Negative); Urine Protein Negative (Neg-Trace)
[2025-01-11 13:42] LABS: Bacteria Urine None Seen (None Seen); Hyaline Casts Urine 0-2 /LPF (0-2); RBC Urine 0-2 /HPF (0-2); Squamous Epithelial Cell Urine 0-2 /HPF (0-2); WBC Urine 0-5 /HPF (0-5)
--- OUTSIDE RECORDS SUMMARY | 2025-01-11 15:19 | XMS_ITS | Clinical Summary ---
Author Organization [facility] Address [address] [place] [address] Care Team Providers Care Recreation Instructor Name Role Phone Unavailable Primary Care Provider [...]
--- OUTSIDE RECORDS SUMMARY | 2025-01-11 15:19 | XMS_ITS | Encounter Summary ---
Author Organization [facility] Address [address] [place] [address] Care Team Providers Care Industrial Machinery Mechanic Name Role Phone Unavailable Primary Care Provider Unavailabl e Encounter Details Date Type Department Care Team (Latest Contact Info) Description 01/03/2021 Lab Requisition [facility] COVID [address] Through [address] [place] [address] [address] [place] [address] Artemio Allen MD [address] [place], [place] [phone] Encounter for laboratory testing for COVID-19 virus [...] Detected Not Detected 01/03/2021 8:06 PM EDT [facility] Comment: Negative results do [...] was completed and performance characteristics established by [facility] as per the FDA and CLIA requirement for this EUA. The Aptima SARS-CoV-2 assay Letter of Authorization, along with the authorized Fact Sheet for Healthcare Providers, the authorized Fact Sheet for Patients, and authorized labeling are available on the FDA website: https://www.fda.gov/medical-devices/zxahasdrs-cepnwfntuk-baaowyp-devices/emergen -us r-qfkawzdroyarzc-zdalalb-devices. Performed at [facility], [place], [place] License 0385 ??CLIA [id number] Source Nasopharyngeal 01/03/2021 8:06 PM EDT [facility] Comment:Performed at [facility], [place], [place] license No. [id number] CLIA No. [id number] Microbiology Nasopharyngeal swab / Unknown 01/03/2021 1:54 PM EDT 01/03/2021 1:54 PM EDT Artemio Allen MD MICROBIOLOGY - GENER AL ORDERABLES [facility] [address] [place] [address] documented in this encounter Visit Diagnoses Diagnosis Encounter for laboratory testing for COVID-19 virus documented in this encounter
--- OUTSIDE RECORDS SUMMARY | 2025-01-11 15:19 | XMS_ITS | Data Portability ---
Author Organization [facility] Home Service Address [address] [place] [address] Assessment No assessment recorded. Plan of Treatment Reminders Order Date Submit Date Provider Last Modified By Organization Details Last Modified Time Details Appointments FOLLOW UP 2024 10:30A M JAMARI BABCOCK Not available Not available Not available FOLLOW UP 2024 11:15A M JAMARI BABCOCK Not available Not available Not available ANNUAL EXAM 2024 09:30A M JAMARI BABCOCK Not available Not available Not available Lab urinalysi s complete, reflex culture 2024 025 [facility], [address] [place] [address], [place], [address], 01/11/2025 11:06:56 CBC w/ auto diff 2024 025 [facility], [address] [place] [address], [address], 12/29/2024 12:55:59 CMP, serum or plasma 2023 024 DARIN [facility] (Centralized Electronic Ordering - All Locations), Patient Can Go To The Location Of Their Choice, [facility] 08/19/2024 10:34:11 CBC w/ auto diff 2023 024 ATHENAFAX [facility] (Centralized Electronic Ordering - All Locations), Patient Can Go To The Location Of Their Choice, [id number] 08/16/2024 16:09:07 vitamin D, 25-hydrox y, total, serum 11/2023 ATHENAFAX [facility] (Centralized Electronic Ordering - All Locations), Patient Can Go To The Location Of Their Choice, [facility] 08/16/2024 16:09:08 lipid panel, blood 2023 ATHENAFAX [facility] (Centralized Electronic Ordering - All Locations), Patient Can Go To The Location Of Their Choice, [facility] 08/16/2024 16:09:07 TSH + free T4, serum 2023 ATHENAFAX [facility] (Centralized Electronic Ordering - All Locations), Patient Can Go To The Location Of Their Choice, [facility] 08/16/2024 16:09:08 CBC w/ auto diff 2023 [facility], [address] [place] [address], [id number], 04/18/2024 16:40:52 CMP, serum or plasma 2023 [facility], [address] [place] [address], [address], 04/18/2024 16:40:52 iron + TIBC + ferritin, serum 2023 [facility], [address] [place] [address], [address], 04/18/2024 16:40:52 amylase + lipase, serum 2023 [facility], [address] [place] [address], [address], 04/18/2024 16:40:52 gamma-glu tamyl transfera se (ggt), serum 2023 [facility], [address] [place] [address], [address], 04/18/2024 16:40:52 Referral gastroent erologist referral 2023 benjamin Altman MD, [address], [place], [address], 04/19/2024 15:52:06 Procedures None recorded. Surgeries None recorded. Imaging XR, knee, 3 view 2023 [facility], [address] [place], [address], 08/18/2024 17:24:54 Medication Orders sertralin e 25 mg tablet 2024 025 [id number], [address] [place] [address], [address], 01/11/2025 10:45:33 dextroamp hetamine- amphetami ne 20 mg tablet 2024 025 [facility], [address] [place] [address], [address], 01/11/2025 10:45:34 sertralin e 25 mg tablet 2024 025 [facility], [address] [place] [address], [address], 01/11/2025 10:43:41 dextroamp hetamine- amphetami ne 10 mg tablet 2024 025 [facility], [address] [place] [address], [address], 01/11/2025 10:43:11 fluoxetin e 10 mg capsule 2023 024 [facility] [address] [place] [address], [address], 12/21/2024 11:55:44 atomoxeti ne 40 mg capsule 2023 024 [facility], [address] [place] [address], [address], 12/21/2024 11:55:49 venlafaxi ne ER 37.5 mg capsule,e xtended release 24 hr 2023 024 rtryba [id number], [address], [place], [address], 08/16/2024 15:54:00 Patient TargetsNo targets recorded. Patient InstructionsNo instructions recorded. 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 for Gastroesophageal reflux disease needs another [...] Details Recorded Time History of depressi on 917645199 Active 2017 Not Available [facility] 3 12:53:26 Anxiety 27148304 Active 2017 Not Available [facility] 3 12:53:26 Acne 55196187 Active 2017 Not Available [facility] 3 12:53:26 Migraine 27977867 Active 2017 resolved Not Available [facility] 3 12:53:26 Tobacco dependen ce syndrome 32670705 Active 2017 Not Available [facility] 3 12:53:26 Cough 86020771 Active 2021 Not Available [facility] 3 12:53:26 Diarrhea 64006436 Active 2021 Not Available [facility] 3 12:53:26 Panic attack 162273939 Active 2021 Not Available [facility] 3 12:53:26 Migraine with aura 8185923 Active 2022 Not Available [facility] 3 12:53:26 Cellulit is 302600086 Active 2022 Not Available [facility] 3 12:53:26 Acute urinary tract infectio n 658057303 Active 2022 Not Available [facility] 3 12:53:26 Dysuria 30205754 Active 2022 Not Available [facility] 3 12:53:26 Recurren t urinary tract infectio n 148824230 Active 2022 JAMARI BABCOCK [address] [place], [address], [facility] 3 15:05:38 Acute bacteria l sinusiti s 22208554 Active 2023 JAMARI BABCOCK [address] [place], [address], [facility] 4 14:04:52 Allergic rhinitis 92499025 Active 2023 JAMARI BABCOCK [address] [place], [address], [facility] 4 14:06:00 Asthmati c bronchit is 388708494 Active 2023 Rico Coello DO [address] [place], [address], [facility] 4 13:32:02 Painless rectal bleeding 361349218 Active 2023 JAMARI BABCOCK [address] [place], [address], [facility] 4 16:30:05 Gastroes ophageal reflux disease 055376488 Active 2023 JAMARI BABCOCK [address] [place], [address], [facility] 4 16:31:26 Depressi ve disorder 80106123 Active 2023 JAMARI BABCOCK [address] [place], [address], [facility] 4 16:40:07 Attentio n deficit hyperact ivity disorder 036087551 Active 2023 JAMARI BABCOCK [address] [place] [address], [address], [facility] 4 15:55:43 Pain of left knee joint 05309981873 4107 Active 2023 JAMARI BABCOCK [address] [place] [address], [address], [facility] 4 15:59:05 Severe recurren t major depressi on without psychoti c features 68308772 Active 2024 JAMARI BABCOCK [address] [place] [address], [address], [facility] 5 15:07:37 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 Procedures Surgical History None recorded. Imaging Results Imaging Date Name Status LastModified by Organiz ation Details LastModified Time 08/18/2024 XR, knee, 3 view completed [email or web address] Information not available 08/19/2024 13:18:03 11/22/2024 MRI, knee, w/o contrast completed Information not available 11/23/2024 10:46:00 Procedure Notes [...] completed Not Available Not Available Not Available ibuprofen 800 mg tablet TAKE 1 TABLET BY MOUTH THREE TIMES A DAY FOR SWELLING active Not Available Not Available No t Available fluconazo le 150 mg tablet TAKE [...] completed Not Available Not Available Not Available dextroamp hetamine- amphetami ne 10 mg tablet TAKE 1 TABLET BY MOUTH EVERY DAY DIRECTED FOR 14 DAYS 01/11 completed Not Available Not Available Not Available [...] MOUTH EVERY 12 HOURS FOR 10 DAYS 12/21 completed Not Available Not Available Not Available sulfameth oxazole 800 mg-trimet hoprim 160 mg tablet TAKE 1 TABLET BY MOUTH EVERY 12 HOURS FOR 5 DAYS 04/18 completed Not Available Not Available Not Available tramadol 50 mg tablet TAKE 1 TABLET BY MOUTH EVERY 4 TO 6 HOURS NEEDED FOR PAIN active Not Available Not Available No t Available triamcino lone acetonide 0.1 % topical cream APPLY THIN COAT TO AFFECTED AREA TWICE A DAY 04/18 completed Not Available Not Available Not Available amoxicill in 500 mg tablet TAKE 1 TABLET BY MOUTH THREE TIMES A DAY 01/11 completed Not Available Not Available Not Available [...] completed Not Available Not Available Not Available dextroamp hetamine- amphetami ne 20 mg tablet Take 1 tablet every day by oral route as needed for 14 days. 2024 active Not Available Not Available Not Avai lable bupropion HCl 75 mg tablet TAKE 1 TABLET BY MOUTH EVERY MORNING 11/10 completed Not Available Not Available Not Available fluoxetin e 10 mg capsule TAKE 1 CAPSULE BY MOUTH EVERY DAY active Not Available Not Available No t Available sertralin e 25 mg tablet Take 1 tablet every day by oral route for 30 days. 2024 active Not Available Not Available Not Avai lable methylpre dnisolone 4 mg tablets in a [...] e 50 mg tablet TAKE 1 TABLET BY MOUTH EVERY DAY active take with 50 mg to make 75 mg Not Available Not Available Not Available doxycycli [...] TAKE 1 CAPSULE BY MOUTH EVERY DAY active Not Available Not Available No t Available bupropion HCl XL 150 mg 24 hr tablet, extended release TAKE 1 TABLET BY MOUTH EVERY MORNING 11/10 completed making general anxiety worse Not Available Not Available Not Available Boostrix Tdap 2.5 Lf unit-8 mcg-5 Lf/0.5 mL intramusc ular syringe TO BE ADMINIST ERED BY [employer]! [address] FOR IMMUNIZA TION 11/10 completed Not Available Not Available Not Available chlorhexi dine gluconate 0.12 % mouthwash SWISH AND SPIT WITH 15 ML TWICE A DAY, GENTLY RINSE. DO NOT SWALLOW active Not Available Not Available No t Available COVID-19 At-Home Test kit USE DIRECTED 04/18 completed Not Available Not Available Not Available Vitals Date Recorded Body height Body mass index (BMI) Body weight Heart rate Oxygen saturation Oxygen saturation in Arterial blood by Pulse oximetry Systolic blood pressure Diastolic blood pressure Provider Name and Address Organization Details Last Updated DateTime 4 161.29 cm 33 kg/m2 37891.9 6 g 66 /min 99 % 99 % 130 mm[Hg] 80 mm[Hg] Fritz Ramirez [facility] 4 16:22:10 Date Recorded Body height Body mass index (BMI) Body weight Heart rate Oxygen saturation Oxygen saturation in Arterial blood by Pulse oximetry Systolic blood pressure Diastolic blood pressure Provider Name and Address Organization Details Last Updated DateTime 4 161.29 cm 33.7 kg/m2 86609.7 6 g 84 /min 97 % 97 % 116 mm[Hg] 74 mm[Hg] Chelsea Rodríguez [facility] 4 15:32:07 Date Recorded Body height Body mass index (BMI) Body weight Heart rate Oxygen saturation Oxygen saturation in Arterial blood by Pulse oximetry Systolic blood pressure Diastolic blood pressure Provider Name and Address Organization Details Last Updated DateTime 5 161.29 cm 33.7 kg/m2 46019.3 3 g 83 /min 97 % 97 % 110 mm[Hg] 68 mm[Hg] Nereida Argueta [facility] 5 14:43:05 Date Recorded Body height Body mass index (BMI) Body weight Provider Name and Address Organization Details Last Updated DateTime 12/21/2024 161.29 cm 33.7 kg/m2 92904.33 g Fritz Ramirez [facility] 12/21/2024 11:35:11 Date Recorded Body height Heart rate Oxygen saturation Oxygen saturation in Arterial blood by Pulse oximetry Systolic blood pressure Diastolic blood pressure Provider Name and Address Organization Details Last Updated DateTime 5 161.29 cm 75 /min 98 % 98 % 112 mm[Hg] 72 mm[Hg] Chelsea Marcos [facility] 5 10:38:45 Social History Question Answer Notes LastModified by Organizat ion Details LastModified Time Tobacco Smoking Status Former Smoker Nereida Argueta [facility] 12/12/2024 14:41:42 What Was The Date Of Your Most Recent Tobacco Screening? 01/11/2025 Information not available 01/11/2025 How Much Tobacco Do You Smoke? No [email or web address] Information not available 12/12/2024 Do You Or Have You Ever Used Any Other Forms Of Tobacco Or Nicotine? No [email or web address] Information not available 03/30/2023 Sex: Unknown Functional Status None recorded. Mental Status None recorded. Family History Nothing Reported. Medical History No medical history recorded. Gynecological HistoryNo gynecological history recorded. Obstetrics History GPAL:G 0 P 0 0 0 0 Immunizations Vaccine Type Date Status Note Provider Nam e and Address Organization Details Recorded Time Influenza, split virus, quadrivalent, preservative 9 completed Not Available [facility] 10/22/2019 02:46:30 influenza, unspecified formulation [address] [facility] 11/10/2022 08:15:47 Tdap 0 completed Brittani orlando [facility] 03/30/2020 08:15:40 Past Encounters Encounter ID Performer Location Encounter Start Date Encounter Closed Date Diagnosis/Indication Diagnosis SNOMED-CT Code Diagnosis ICD10 Code Diagnosis Note [id number] [facility] [address],[place] [address] 05/27/2019 10:04:24 05/27/2019 10:52:43 Hemoptysis 09800775 R04.2 cough, tanya ? tb, pna, vs pe go to er if worsens Dizziness 927704631 R42 Migraine 73581686 G43.90 9 Fatigue 87148252 R53.83 Acute pharyngitis 814961 003 J02.9 Increased frequency of urination 133000215 R35.0 Diarrhea 52750965 R19.7 not as bad anymore was supposed to have celiac panel done but never did [id number] [address] Coello [address],[place] [address] 07/25/2019 09:50:32 07/26/2019 13:36:25 Tuberculosis screening 017675149 Z11.[id number],[place] [address] 07/27/2019 09:54:08 07/27/2019 14:22:43 Tuberculosis screening 342082546 Z11.1 Administra tion of influenza vaccine 80822242 Z23 [id number] [address] 09/09/2019 10:17:48 09/09/2019 11:04:58 Adult health examination 534684852 Z00.00 Active or passive immunization 732583941 Z23 Fatigue 98091631 R53.83 Vitamin D deficiency 347 74013 E55.9 Body mass index 25-29 - overweight 967715788 Z68.28 [id number] Rico Coello [address] [address] 09/12/2019 09:59:27 09/12/2019 10:06:57 Tuberculosis screening 945657595 Z11.7 [id number] Rico PerlitaLeo Coello, [facility] [address] [facility] [address] [address] 09/14/2019 10:05:30 09/14/2019 10:41:21 Tuberculosis screening 135061244 Z11.7 [id number] Rico Coello [facility] [address] [facility] [address] [address] 02/20/2020 15:45:28 02/21/2020 08:17:47 Headache 31697589 R51 Sinus headache 2907135 R 51 Diarrhea 10980767 R19.7 [id number] JAMARI BABCOCK [facility] [address] [facility] [address] [address] 03/09/2020 08:12:28 03/09/2020 11:41:04 Anxiety 89157260 F41.9 will start on medication and f/u in one month to see how she is doing on the dose on this medication she is advised she can start with half a pill for the first week cut the initial effects as she is sensitive to medication s [id number] JAMARI BABCOCK [facility] [address] [facility] [address] 03/30/2020 08:13:01 03/30/2020 14:17:58 Vitamin B12 deficiency (non anemic) 81070712 E53.8 will recheck level Vitamin D deficiency 347 91511 E55.9 will recheck level Anxiety 08536107 F41.9 doing well on medication will continue and f/u to see if she would like to increase dosage [id number] JAMARI BABCOCK [facility] [address] [facility] [address] [address] 07/18/2020 14:23:31 07/18/2020 15:17:44 Dysuria 93983168 R30.9 will start empiric treatment for possible UTI given symptoms as she is waiting to be tested for COVID Exposure t o SARS-CoV-2 421703111 Z20.828 exposure to positive COVID case indirectly through boss will test for COVID [id number] JAMARI BABCOCK [facility] [address] [facility], [place] [address] 10/09/2020 08:32:10 10/09/2020 12:40:29 COVID-19 679837492 U07.1 patient has completed the two week quarantine and still has symptoms discussed with patient that these may take a while longer to resolve due to the nature of the virus will trial an inhaler to help with breathing and wheezing the patient reports Cough 32731529 R05 will contact me if any worsening symptoms will trial inhaler to see if cough and wheezing improves [id number] JAMARI BABCOCK [facility] [address] [facility] [place] [address] 07/29/2021 09:06:05 07/29/2021 09:42:34 Active or passive immunization 433876814 Z23 Adult heal th examination 786747176 Z00.00 BP is excellent today Gastroesop hageal reflux disease 893685440 K21.9 will submit referral Migraine with aura 93287 06 G43.109 will submit referral [id number] JAMARI BABCOCK [facility] [address] [facility], [address] [place] [address] 11/19/2021 10:19:00 11/19/2021 14:38:58 Bacterial vaginosis 572476977 N76.0 will start dual therapy for treatment and fu with urine sampleBV usually diagnosed with a smear, if needed will set her up with her automatic glove turner and former as well [id number] JAMARI BABCOCK [facility] [address] [facility], [place] [address] 11/10/2022 10:00:03 11/10/2022 10:51:44 Anxiety 96736171 F41.1 will manage on this Adult heal th examination 745371470 Z00.00 BP is excellent today Exposure to mold 5766070 813 1728662 Z77.120 will set up with mold panel to make sure with new apartment [id number] JAMARI BABCOCK [facility] [address] [facility],[place] [address] 12/19/2022 09:33:14 12/22/2022 10:32:05 Migraine with aura 9814573 G43.109 will submit referral Cellulitis 258508900 L03 .315 will start on doxycyline for the next 7 days [place] [id number] JAMARI BABCOCK [facility] [address] [facility] [address] [address] 03/30/2023 11:29:08 03/30/2023 14:14:52 Acute urinary tract infection 592736900 N10 start on cipro [id number] Rico Coello [facility] [address] [facility] [address] [address] 05/27/2023 14:05:13 05/27/2023 14:58:32 Dysuria 21621915 R30.0 [id number] Rico Coello [facility] [address] [facility] [address] [address] 09/02/2023 13:48:49 09/04/2023 08:46:37 Dysuria 27988259 R30.0 [id number] JAMARI BABCOCK [facility] [address] [facility] [address] [address] 02/23/2024 10:37:42 02/24/2024 20:23:11 [id number] JAMARI BABCOCK [facility] [address] [facility] [address] [address] 02/23/2024 12:03:04 02/24/2024 08:44:40 Acute bacterial sinusitis 78853804 J01.01 will start on z nga, medrol Allergic rhinitis 035990 04 J30.89 will set up with an evaluation [id number] JAMARI BABCOCK [facility] [address] [facility] [address] [address] 04/18/2024 16:11:34 04/19/2024 15:43:14 Depression screening 045714947 Z13.31 negative Painless r ectal bleeding 343561208 K62.5 will set up with lab work to r/o other causes and or continous bleed Gastroesop hageal reflux disease 118710201 K21.9 will submit referral Depressive disorder 3538 7 F33.8 will switch over to the venlafaxin e [id number] JAMARI BABCOCK [facility] [address] [facility], [place] [address] 08/16/2024 15:20:13 08/16/2024 16:21:38 Active or passive immunization 708504128 Z23 advised patient Adult heal th examination 016962903 Z00.00 BP is excellent today Depressive disorder 3548 9006 F33.8 switch to fluoxetine Attention deficit hyperactivity disorder 906439458 F90.2 will set up with atomoxetin e as wellif effective or if needs some benefit with stronger medication Pain of le ft knee joint 9350092621 91567 M25.562 will set up with left knee XR after previous injury [id number] JAMARI BABCOCK [facility] [address] [facility], [employer] [place] [address] 12/12/2024 14:32:46 12/12/2024 15:42:27 Severe recurrent major depression without psychotic features 63417869 F33.2 will set up with FMLA [id number] JAMARI BABCOCK [facility] [address] [facility], [place] [address] 12/21/2024 11:27:02 12/21/2024 12:26:35 Acute urinary tract infection 568699457 N39.0 start on cipro Depressive disorder 3548 9007 F33.8 switch to fluoxetine Anxiety 05856148 F41.1 restart sertraline , adding an adderall Attention deficit hyperactivity disorder 415119156 F90.2 will set up with adderall as an alt and restart on the sertraline [id number] JAMARI BABCOCK [facility] [address] [facility], [address] [place] [address] 01/11/2025 10:30:45 01/11/2025 12:08:35 Attention deficit hyperactivity disorder 205276801 F90.2 will set up with adderall as an alt and restart on the sertraline Anxiety 47462556 F41.1 restart sertraline , adding an adderall Asthma 751935667 J45.20 stable Depression screening 171 630557 Z13.31 negative Dysuria 79921531 R30.9 recheck urine Health Concerns Section Related Observation LastModified by Organization Detai ls LastModified Time None Recorded Concern Status LastModified by Organization Details LastModified Time None Recorded Advance Directives Directive None Recorded Payers Encounter Date Sequence Insurance Name Policy Number Policy Islas Covered Member ID Islas Member ID Guarantor Name 04/18/2024 1 [employer] [id number] Mandie M Hassan [id number] Mandie Hassan 08/16/2024 1 [employer] [id number] Mandie M Hassan [id number] Mandie Hassan 12/12/2024 1 [employer] [id number] Mandie M Hassan [id number] Mandie Hassan 12/21/2024 1 [employer] [id number] Mandie M Hassan [id number] Mandie Hassan 01/11/2025 1 [employer] [id number] Mandie M Hassan [id number] Mandie Hassan Notes Date Note Type Note Provider Name a nd Address Organization Details Recorded Time 4 text/html c/o rectal bleeding the patient [...] switch out to venlafaxine JAMARI BABCOCK [address] [place], [address], [facility] 04/18/2024 16:46:14 4 text/html Annual [...] lab work as well JAMARI BABCOCK [address] [place], [address], [facility] 08/16/2024 16:15:58 5 text/html f/u depression depression d/o: the patient is having a lot of issues with previous anti depressant, noted that she got more irritability will hold on alt medication until we get her set up with FMLA for severe MDD and SI having severe emotional distress due to her job and her fam she works for [employer], contact for [facility], medical leave: Desire Boyce registered nurse obstetrics [place] Customer Support Call: [phone] Email: [email or web address] org Ganesh Jonas registered nurse obstetrics [place] Customer Support Call: [phone] Email: [email or web address] JAMARI BABCOCK [address] [place] [address], [address], [facility], [place] [facility] 12/12/2024 15:32:39 5 text/html 1 week f/u the patient reports that she is feeling slightly betterhad her f/u with therapist within the last week, has another f/u on 01/04/25 the patient and I discussed her moodstill anxious and depressed about the whole situationthe patient reports that discussed now starting her on a new medication as well recommended starting on sertraline again, low dose, then increasethen add adderall as well for the ADHD symptoms and to avoid the side effects with the sertraline the patient reports that she has a fu with her dentistwill add that to her FMLA for futurue dentist appts JAMARI BABCOCK [address] [place], [address], [facility] 12/21/2024 12:18:56 5 text/html f/u medications the patient had her dental surgerythe patient had her post op yesterdaythe patient will be followed up by that office the patient did notice some difference with the ADHD medicationbut also has been going through a lot with her anxiety and she has her periodthe patient reports that she is better with the sertraline, will bump it up to the 75 mg dosed up the adderall to 20 mg and added back on the 25 mg QD PO will extend her FMLA if she needs as we dose adjust her medications and due to her recent dental procedure which she will stay have issues according to dentist asthma: stable per patient JAMARI BABCOCK [address] [place], [address], [facility] 01/11/2025 11:07:11 OBGyn Episode No OBEpisode recorded.
--- OUTSIDE RECORDS SUMMARY | 2025-01-11 15:19 | XMS_ITS | Encounter Summary ---
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
--- OUTSIDE RECORDS SUMMARY | 2025-01-11 15:19 | XMS_ITS | Continuity of Care Document ---
Author Organization [facility] Address [address] [facility] [place] [address] Assessment No assessment recorded. Plan of Treatment [...] urinalysi s complete, reflex culture 2024 025 [facility], [address] [place] [address], [place], [address], 01/11/2025 11:06:56 Referral None recorded. Procedures None recorded. Surgeries None recorded. Imaging None recorded. Medication Orders sertralin e 25 mg tablet 2024 025 [id number], [address] [place] [address], [address], 01/11/2025 10:45:33 dextroamp hetamine- amphetami ne 20 mg tablet 2024 025 [id number], [address] [place], [address], 01/11/2025 10:45:34 Patient TargetsNo targets recorded. Patient InstructionsNo instructions recorded. 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 None Reported. Problems Name Problem SNOMED Code Status Onset Date Resolution Date Notes Provider Name and Address Organization Details Recorded Time History of depressi on 212807374 Active 2017 Not Available [facility] 3 12:53:26 Anxiety 62442944 Active 2017 Not Available [facility] 3 12:53:26 Acne 56568367 Active 2017 Not Available [facility] 3 12:53:26 Migraine 41518617 Active 2017 resolved Not Available [facility] 3 12:53:26 Tobacco dependen ce syndrome 04800535 Active 2017 Not Available [facility] 3 12:53:26 Cough 10332380 Active 2021 Not Available [facility] 3 12:53:26 Diarrhea 50408100 Active 2021 Not Available [facility] 3 12:53:26 Panic attack 930926425 Active 2021 Not Available [facility] 3 12:53:26 Migraine with aura 6481710 Active 2022 Not Available [facility] 3 12:53:26 Cellulit is 794955675 Active 2022 Not Available [facility] 3 12:53:26 Acute urinary tract infectio n 750622384 Active 2022 Not Available [facility] 3 12:53:26 Dysuria 00105797 Active 2022 Not Available [facility] 3 12:53:26 Recurren t urinary tract infectio n 400165369 Active 2022 JAMARI BABCOCK [address] [place], [address], [facility] 3 15:05:38 Acute bacteria l sinusiti s 34460310 Active 2023 JAMARI BABCOCK [address] [place], [address], [facility] 4 14:04:52 Allergic rhinitis 68006385 Active 2023 JAMARI BABCOCK [address] [place], [address], [facility] 4 14:06:00 Asthmati c bronchit is 744556913 Active 2023 Rico Coello DO [address] [place], [address], [facility] 4 13:32:02 Painless rectal bleeding 599824363 Active 2023 JAMARI BABCOCK [address] [place], [address], [facility] 4 16:30:05 Gastroes ophageal reflux disease 647365253 Active 2023 JAMARI BABCOCK [address] [place], [address], [facility] 4 16:31:26 Depressi ve disorder 98418722 Active 2023 JAMARI BABCOCK [address] [place], [address], [facility] 4 16:40:07 Attentio n deficit hyperact ivity disorder 301471475 Active 2023 JAMARI BABCOCK [address] [place] [address], [address], [facility] 4 15:55:43 Pain of left knee joint 09795663940 4107 Active 2023 JAMARI BABCOCK [address] [place], [address], [facility] 4 15:59:05 Severe recurren t major depressi on without psychoti c features 76205306 Active 2024 JAMARI BABCOCK [address] [place] [address], [address], 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 5 10:08:51 Hypercho lesterol emia 00844008 Active 2024 JAMARI BABCOCK [address] [place], [address], [facility] 5 12:05:20 Asthma 339456425 Active 2024 JAMARI BABCOCK [address] [place], [address], [facility] 5 10:58:58 Problem Notes None recorded. Medical Equipment None [...] Not Available Vitals Date Recorded Body height Heart rate Oxygen saturation Oxygen saturation in Arterial blood by Pulse oximetry Systolic blood pressure Diastolic blood pressure Provider Name and Address Organization Details Last Updated DateTime 5 161.29 cm 75 /min 98 % 98 % 112 mm[Hg] 72 mm[Hg] [facility] 5 10:38:45 Social History Question Answer Notes LastModified by Organizat ion Details LastModified Time Tobacco Smoking Status Former Smoker Nereida Shoemakerkiesha [facility] 12/12/2024 14:41:42 What Was The Date Of Your Most Recent Tobacco Screening? 01/11/2025 [email or web address] Information not available 01/11/2025 How Much Tobacco Do You Smoke? No [email or web address] Information not available 12/12/2024 Do You Or Have You Ever Used Any Other Forms Of Tobacco Or Nicotine? No [email or web address] Information not available 03/30/2023 Sex: Unknown Functional Status None recorded. Mental Status None recorded. Family History Nothing Reported. Medical History No medical history recorded. Gynecological HistoryNo gynecological history recorded. Obstetrics History GPAL:G 0 P 0 0 0 0 Immunizations Vaccine Type Date Status Note Provider Nam e and Address Organization Details Recorded Time Influenza, split virus, quadrivalent, preservative 9 completed Not Available [facility] 10/22/2019 02:46:30 influenza, unspecified formulation 2 completed Clare [facility] 11/10/2022 08:15:47 Tdap 0 completed Brittani [facility] 03/30/2020 08:15:40 Past Encounters Encounter ID Performer Location Encounter Start Date Encounter Closed Date Diagnosis/Indication Diagnosis SNOMED-CT Code Diagnosis ICD10 Code Diagnosis Note [id number] JAMARI BABCOCK [facility] [address] [facility] [address] 12/12/2024 14:32:46 12/12/2024 15:42:27 Severe recurrent major depression without psychotic features 54616741 F33.2 will set up with [facility] [id number] JAMARI BABCOCK [facility] [address] [facility] [address] 12/21/2024 11:27:02 12/21/2024 12:26:35 Acute urinary tract infection 449356510 N39.0 start on cipro Depressive disorder 3548 9007 F33.8 switch to fluoxetine Anxiety 25859204 F41.1 restart sertraline , adding an adderall Attention deficit hyperactivity disorder 983248254 F90.2 will set up with adderall as an alt and restart on the sertraline [id number] JAMARI BABCOCK [facility] [address] [facility] [address] 01/11/2025 10:30:45 01/11/2025 12:08:35 Attention deficit hyperactivity disorder 512487518 F90.2 will set up with adderall as an alt and restart on the sertraline Anxiety 89768349 F41.1 restart sertraline , adding an adderall Asthma 813405221 J45.20 stable Depression screening 171 236070 Z13.31 negative Dysuria 58115058 R30.9 recheck urine Health Concerns Section Related Observation LastModified by Organization Detai ls LastModified Time None Recorded Concern Status LastModified by Organization Details LastModified Time None Recorded Payers Encounter Date Sequence Insurance Name Policy Number Policy Islas Covered Member ID Islas Member ID Guarantor Name 01/11/2025 1 [employer] [id number] Mandie Hassan [id number] Mandie Hassan Notes Date Note Type Note Provider Name a nd Address Organization Details Recorded Time 01/11/2025 text/html f/u medications the patient had her [...] asthma: stable per patient JAMARI BABCOCK [address] [facility], [place], [address], [facility] 01/11/2025 11:07:11 OBGyn Episode No OBEpisode recorded.
--- OUTSIDE RECORDS SUMMARY | 2025-01-11 15:19 | XMS_ITS | Clinical Summary ---
Author Organization [facility] Address [address] [place] [address] Phone Care Team Providers Care Linker Up Name Role Phone Unavailable Primary Care Provider [...] Mother drug abuse age: 37 Paternal Grandfather [place] age: 49 Paternal Grandmother migrain e age: [...]
--- OUTSIDE RECORDS SUMMARY | 2025-01-11 15:19 | XMS_ITS | Encounter Summary ---
Author Organization [facility] Address [address] [place] [address] Phone Care Team Providers Care Core Winder Machine Operator Name Role Phone Unavailable Primary Care Provider Unavailabl e Encounter Details Date Type Department Care Team (Late st Contact Info) Description 10/25/[address] [facility] [address] Family Medicine, Physician [facility] [place] [address] Social History Tobacco Use Types Packs/Day Years [...]
--- OUTSIDE RECORDS SUMMARY | 2025-01-11 15:19 | XMS_ITS | Clinical Summary ---
Author Organization [facility] Address [address] [place] [address] Care Team Providers Care Delivery Crew Member Name Role Phone Unavailable Primary Care Provider [...]
== END 2025-01-11 13:17 | disposition home or self-care (01) ==
LOC: HO.MANLNP 13:16
PROVIDERS: Visit Provider Physician Assistant
DX: R30.9 Painful micturition, unspecified (principal)
CPT/HCPCS: 81001